=== PATIENT | male | born 1975 | race Caucasian/White ===

== ENCOUNTER 2016-05-28 22:46 | Emergency (ER) | payer OTHER ==
[2016-05-28] MEDS ORDERED: Adacel (T-DAP) 0.5 ML VIAL ONE (22:55)
[2016-05-28] MEDS ORDERED: Clindamycin/D5W 600 mg/50 ml Premix Bag ONE (23:05)
[2016-05-28] MEDS ORDERED: Ketorolac Tromethamine 30 MG/ML VIAL ONE (23:14)
[2016-05-28 23:21] LABS: #Basophils 0.1 thou/uL (0.0-0.2); #Eosinphils 0.3 thou/uL (0.0-0.7); #Lymphocytes 2.4 thou/uL (1.20-3.40); #Monocytes 0.6 thou/uL (0.11-0.59); #Neutrophils 6.7 thou/uL (1.40-6.50); %Basophils 0.9 % (0.0-1.0); %Eosinophils 2.5 % (0.0-10.0); %Lymphocytes 24.1 % (21.0-51.0); %Monocytes 6.3 % (0.0-10.0); %Neutrophils 66.2 % (42.0-75.0); Hemoglobin 16.2 g/dL (14.0-18.0); Mean Corpuscular HGB CONC 35.1 g/dL (32.0-36.0); Mean Corpuscular Hemoglobin 32.1 pg (27.0-31.0); Mean Corpuscular Volume 91.6 fl (80.0-94.0); Platelet Count 198 thou/uL (130-400); RBC Distribution Width 12.2 % (11.5-14.5); Red Blood Cell (RBC) Count 5.06 mill/uL (4.70-6.10)
[2016-05-28 23:31] LABS: ALT (SGPT) 37 U/L (0-55); AST (SGOT) 25 U/L (5-34); Albumin 4.4 g/dL (3.5-5.0); Alkaline Phosphatase 74 U/L (40-150); Anion Gap 14 mmol/L (10-20); BUN (Urea Nitrogen) 20 mg/dL (8.9-20.6); Bilirubin, Total 0.4 mg/dL (0.2-1.2); Calc. Creatinine Clearance 0 mL/min (70-130); Calcium 9.2 mg/dL (7.8-10.44); Carbon Dioxide 21 mmol/L (22-29); Chloride 106 mmol/L (98-107); Estimated GFR-MDRD 65; Globulin 3.4 g/dL (2.4-3.5); Glucose 105 mg/dL (70-105); Potassium 3.9 mmol/L (3.5-5.1); Protein, Total 7.8 g/dL (6.0-8.3); Sodium 137 mmol/L (136-145)
[2016-05-29] MEDS ORDERED: Piperacillin/Tazobactam 3.375 GM VIAL ONE (00:14)
--- NOTE | 2016-05-29 12:52 | CT ---
PRELIMINARY REPORT/[facility]/EMERGENCY AFTER HOURS PROCEDURE: EXAM: CT Left Lower Extremity Without Intravenous Contrast, Foot CLINICAL HISTORY: 40 years old, male; Injury or trauma; Injury Pt presents to the er for left foot injury; At approxim ately 2pm today pt states he stepped on a nail that went through his boot into the sole of his foot. Since then has had increasing pain and swelling, especially over the dorsum of the foot proximal to the toes. ; Initial encounter; Puncture; Foreign body involvement not specified; Injury date: 05/28 TECHNIQUE: Axial computed tomography images of the left foot without intravenous contrast. Coronal and sagittal reformatted images were created and reviewed. COMPARISON: No relevant prior studies available. FINDINGS: Bones/joints: No fracture. No osseous erosion to indicate osteomyelitis. No dislocation. Soft tissues: There is diffuse subcutaneous edema of the foot. 2 cm area of induration in the subcut aneous tissue of the plantar surface of the foot superficial to the fifth metatarsal phalangeal join t, presumably the site of puncture wound. No soft tissue gas or abscess. IMPRESSION: 1. There is diffuse subcutaneous edema of the foot. 2. 2 cm area of induration in the subcutaneous tissue of the plantar surface of the foot superficial to the fifth metatarsal phalangeal joint, presumably the site of puncture wound. 3. No soft tissue gas or abscess. Thank you for allowing us to participate in the care of your patient. Dictated and Authenticated by: Agustin Diehl MD 05/29/2016 12:09 AM Central Time ([place] \T\ [place]) FINAL REPORT EXAM: LEFT FOOT CT WITHOUT CONTRAST: HISTORY: The patient stepped on a nail, going through the sole of his boot. Pain and swelling. COMPARISON: None. TECHNIQUE: A noncontrast CT of the left foot is performed in the axial plane. Reformatted images are submitted for interpretation. FINDINGS: This report is in agreement with the preliminary report by [facility]. There are posttraumatic changes inv olving the soft tissues along the plantar surface at the level of the 5th metatarsal phalangeal join t space. No evidence of abscess. No radiopaque foreign body. POS: [facility]
== END 2016-05-29 01:03 | disposition home or self-care (01) ==
LOC: BURERS 22:46
DX: S91.332A Puncture wound without foreign body, left foot, initial encounter (principal); L03.116 Cellulitis of left lower limb; X58.XXXA Exposure to other specified factors, initial encounter
CPT/HCPCS: 80053; 83605; 85025; 85652; 87040; 90471; 90715; 96365; 96366; 96368; 96375; J1885; J2270; J2543; J3490